=== PATIENT | female | born 1950 | race Two or more races ===

== ENCOUNTER 2023-11-15 09:15 | Inpatient (IN) | payer OTHER ==
[~2023-11-15] VITALS: Ht 154.9 cm; Wt 65.8 kg
[2023-11-15] MEDS ORDERED: SIMVASTATIN5 MG PO (09:58)
[2023-11-15 10:26] LABS: PH,URINE 5.5 (5.0-8.0); URINE APPEARANCE Clear; URINE BILIRRUBIN Negative (NEGATIVE); URINE BLOOD Negative; URINE COLOR Yellow; URINE GLUCOSE Negative (NEGATIVE); URINE LEUKOCYTE Negative; URINE NITRATE Negative; URINE PROTEIN Negative (NEGATIVE); URINE UROBILINOGEN 0.2 E.U./dl
[2023-11-15 10:29] LABS: URINE WBC 2.4 uL (0.0-23.2)
[2023-11-15 10:35] LABS: URINE BACTERIA 3.7 uL (0.0-1933); URINE EPITHELIAL CELLS 0.7 uL (0.0-38.8); URINE RBC 0.9 uL (0.0-20.8)
[2023-11-15 10:51] LABS: HEMATOCRIT 33.4 % (36.0-45.00); HEMOGLOBIN 11.2 g/dL (12.0-15.00); MEAN CELL VOLUME 88.3 fL (80.00-100.00); MEAN CORPUSCULAR HEMOGLOBIN 29.5 pg (27.00-32.0); MEAN CORPUSCULAR HGB CONC 33.4 g/dl (32.0-36.0); PLATELET COUNT 299 K/uL (150-450); RED BLOOD COUNT 3.78 M/uL (4.00-6.00); RED CELL DISTRIBUTION WIDTH 13.5 % (11.5-14.5)
[2023-11-15 11:16] LABS: INR 0.99; PARTIAL THROMBOPLASTIN TIME 25.8 SECONDS (22.0-34.0)
[2023-11-15 11:29] LABS: ALBUMIN 3.6 gm/dL (3.4-5.0); BILIRUBIN TOTAL 0.44 mg/dL (0.3-1.2); CALCIUM 9.4 mg/dL (8.5-10.1); CREATININE SERUM 0.7 mg/dL (0.55-1.02); GFR 82.49; GLOBULINA 3.5 G/DL (2.4-3.5); POTASSIUM 4.03 mEq/L (3.5-5.1); TOTAL PROTEIN 7.1 gm/dL (6.4-8.2)
[2023-11-21] MEDS ORDERED: CANDESARTAN CIL16 MG (09:52)
[2023-11-21] MEDS ORDERED: ALENDRONATE SOD70 MG (09:52)
[2023-11-21] MEDS ORDERED: NORVASC2.5 MG (09:52)
[2023-11-21] MEDS ORDERED: DEXAMETHASONE SODIUM PHOSPHATE 4 MG/ML VIAL ONE (10:15)
[2023-11-21] MEDS ORDERED: DEXAMETHASONE SODIUM PHOSPHATE 4 MG/ML VIAL IV ONE (10:45)
[2023-11-21] MEDS ORDERED: ONDANSETRON HCL 2 MG/ML VIAL IV PRN (15:15)
[2023-11-21] MEDS ORDERED: ENALAPRILAT DIHYDRATE 1.25 MG/ML VIAL IV PRN (15:15)
[2023-11-21] MEDS ORDERED: MORPHINE SULFATE 4 MG/ML VIAL IV ONE (15:20)
[2023-11-21] MEDS ORDERED: CYCLOBENZAPRINE HCL 5 MG TABLET PO SCH (17:00)
[2023-11-21] MEDS ORDERED: ACETAMINOPHEN 500 MG GEL..CAP PO SCH (17:00)
[2023-11-21] MEDS ORDERED: TRAMADOL HCL 50 MG TABLET PO SCH (18:00)
[2023-11-22] MEDS ORDERED: SIMVASTATIN 40 MG TABLET PO SCH (09:00)
== END 2023-11-22 11:17 | disposition home or self-care (01) | DRG 627 ==
LOC: O/R 11-21 06:42 → SURH 11-21 09:15
PROVIDERS: ADMIT Surgery; ATTEND Surgery
PROC: 0GTL0ZZ Resection of Right Superior Parathyroid Gland, Open Approach (ICD-10-PCS; 2023-11-21)
PROC: 0GTP0ZZ Resection of Left Inferior Parathyroid Gland, Open Approach (ICD-10-PCS; principal; 2023-11-21 09:45)
DX: E21.0 Primary hyperparathyroidism (principal); Z20.822 Contact with and (suspected) exposure to COVID-19

== ENCOUNTER 2023-11-23 17:26 | Emergency (ER) | payer OTHER ==
[~2023-11-23] VITALS: Ht 157.5 cm; Wt 68.0 kg
[~2023-11-23 17:26] MED LIST: ALENDRONATE SOD70 MG; CANDESARTAN CIL16 MG; NORVASC2.5 MG; SIMVASTATIN5 MG PO
[2023-11-23 19:01] LABS: HEMATOCRIT 35.3 % (36.0-45.00); HEMOGLOBIN 11.9 g/dL (12.0-15.00); MEAN CELL VOLUME 87.8 fL (80.00-100.00); MEAN CORPUSCULAR HEMOGLOBIN 29.7 pg (27.00-32.0); MEAN CORPUSCULAR HGB CONC 33.8 g/dl (32.0-36.0); PLATELET COUNT 281 K/uL (150-450); RED BLOOD COUNT 4.02 M/uL (4.00-6.00); RED CELL DISTRIBUTION WIDTH 13.9 % (11.5-14.5)
[2023-11-23 19:23] LABS: CALCIUM 9.2 mg/dL (8.5-10.1); CREATININE SERUM 1.01 mg/dL (0.55-1.02); GFR 54.03; POTASSIUM 4.27 mEq/L (3.5-5.1)
== END 2023-11-23 20:10 | disposition home or self-care (01) ==
LOC: ER 17:27
PROVIDERS: General Practice
DX: R07.9 Chest pain, unspecified (principal); R21 Rash and other nonspecific skin eruption; Z88.0 Allergy status to penicillin